=== PATIENT | female | born 1990 | race Caucasian/White ===

== ENCOUNTER 2023-01-09 20:56 | Emergency (ER) | payer MEDICAID ==
[~2023-01-09] VITALS: Ht 172.7 cm; Wt 62.7 kg
[2023-01-09 20:56] VITALS: TEMP 98.8
[2023-01-09 21:31] LABS: BASO # 0.1 K/mm3 (0.0-0.2); EOS # 0.3 K/mm3 (0.0-0.7); EOS % 5.2 % (0.0-4.0); GRAN % 60.9 % (42.2-75.2); HEMOGLOBIN 10.2 g/dl (12.5-16.0); LYMPH # 1.2 K/mm3 (1.2-3.4); MEAN CELL VOLUME 81 fl (80.0-100.0); MEAN CORPUSCULAR HEMOGLOBIN 26 pg (27-31); MEAN CORPUSCULAR HGB CONC 32 g/dl (33.0-37.0); MONO # 0.4 K/mm3 (0.1-0.6); MONO % 8.5 % (1.7-9.3); PLATELET COUNT 286 K/mm3 (130-400); RED BLOOD COUNT 3.94 M/mm3 (4.10-5.30); REDCELL DISTRIBUTION WIDTH-CV 17.8 % (11.5-14.5)
[2023-01-09 21:35] LABS: HEMATOCRIT 31.9 % (37.0-47.0)
[2023-01-09 21:55] LABS: ALANINE AMINOTRANSFERASE 10 U/L (0-55); ALBUMIN 3.9 gm/dL (3.5-5.0); ALKALINE PHOSPHATASE 78 U/L (40-150); ANION GAP 10 mmol/L (7-16); AST,SGOT 16 U/L (5-34); BILIRUBIN,TOTAL 0.1 mg/dL (0.2-1.2); BLOOD UREA NITROGEN 17 mg/dL (7-19); CARBON DIOXIDE 21 mmol/L (22-29); CHLORIDE 111 mmol/L (98-107); CREATININE, serum 0.82 mg/dL (0.57-1.11); GLUCOSE 115 mg/dL (70-99); POTASSIUM 3.4 mmol/L (3.5-4.5); SODIUM 142 mmol/L (136-145); TOTAL PROTEIN 7.1 gm/dL (6.2-8.1)
[2023-01-09 22:01] LABS: TROPONIN-I < 0.010 ng/mL (0.00-0.033)
[2023-01-09 22:53] VITALS: BP 104/57; PULSE 77
== END 2023-01-09 23:01 | disposition home or self-care (01) ==
LOC: EDBD 20:56 → COL.ER 20:56
PROVIDERS: Nurse Practitioner
DX: R07.9 Chest pain, unspecified (principal); Z28.310 Unvaccinated for COVID-19
CPT/HCPCS: J2060; J7030